=== PATIENT | female | born 1965 | race Caucasian/White ===

== ENCOUNTER → 2023-04-29 11:38 | Outpatient (REF) | payer OTHER, SELFPAY | LOC: HWWDC 11:38 | PROVIDERS: ATTENDING PHYSICIAN Obstetrics & Gynecology; FAMILY PHYSICIAN Family Medicine | DX: Z12.31 Encounter for screening mammogram for malignant neoplasm of breast (principal) | CPT/HCPCS: 77063; 77067 ==

== ENCOUNTER 2023-12-04 17:08 | Emergency (ER) | payer OTHER, SELFPAY ==
[2023-12-04 17:09] VITALS: BP 112/70
--- NOTE | 2023-12-04 17:50 | ED.SKININJ ---
HPI-Injury
<Laisha Bello WATER SERVICE DISPATCHER - Last Filed: 12/04/23 23:13>
General
Chief Complaint: Skin Problem
Source: patient
Exam Limitations: none
Time Seen by Provider: 12/04/23 17:37
Nursing documentation reviewed up to this point in time: agreed with
History of Present Illness-Injury
Initial Injury comments:
58-year-old female with no significant past medical history states she was driving a glass with her right hand in the glass when the glass broke and lacerated the palm of her right hand. She is unsure of her last tetanus immunization.
Past History
<Laisha Bello, WATER SERVICE DISPATCHER - Last Filed: 12/04/23 23:13>
Past History
ED Past Medical History: Other (MS, currently taking no medication, has no symptoms)
ED Past Surgical History: Cholecystectomy and Gynecological (tubal ligation)
Social History
Tobacco: Non-smoker
Alcohol: Occasional
Personal:
Living: with family
Employment: Employed
Review of Systems
<Laisha Bello, WATER SERVICE DISPATCHER - Last Filed: 12/04/23 23:13>
Review of Systems
Allergies reviewed?: Yes
All Other Systems: ROS reviewed and negative except as documented in HPI and ROS
Skin: Reports other (Cut palm of right hand)
Skin Exam
<Laisha Bello, WATER SERVICE DISPATCHER - Last Filed: 12/04/23 23:13>
Laceration
Thenar eminence right hand palm:
Length in cm: 2
Orientation: diagonal
Type of Laceration: simple
Any active bleeding?: low grade venous oozing
Distal skin color and temperature: normal-warm & good color
Normal distal neurovascular exam: Yes
Range of motion: full
Phy Exam
<Laisha Bello, WATER SERVICE DISPATCHER - Last Filed: 12/04/23 23:13>
Physical Exam
Physical Exam:
PHYSICAL EXAMINATION:
General: no apparent distress, not acutely ill
Neuro: alert and oriented.
Psychiatric: well kept. interactive and cooperative
Musculoskeletal: Moves with ease
Skin: Warm, pink.
Course
<Laisha Bello NP - Last Filed: 12/04/23 23:13>
Orders/Labs/Results
Orders:
Orders
12/04/23 17:51
Tetanus/Diphth/Acelpertussis [Adacel] 0.5 ml IM .ONCE ONE
Vital Signs
Initial and Last Documented VS:
Initial Vital Signs
Temp Pulse Resp BP Pulse Ox
98.9 F 104 18 112/70 100
12/04/23 17:09 12/04/23 17:09 12/04/23 17:09 12/04/23 17:09 12/04/23 17:09
Last Documented Vital Signs
Temp Pulse Resp BP Pulse Ox
98.9 F 76 18 104/61 100
12/04/23 17:09 12/04/23 18:14 12/04/23 17:09 12/04/23 18:14 12/04/23 17:09
<Yesi Miguel PA-C - Last Filed: 12/04/23 18:03>
Orders/Labs/Results
Orders:
Orders
12/04/23 17:51
Tetanus/Diphth/Acelpertussis [Adacel] 0.5 ml IM .ONCE ONE
Vital Signs
Initial and Last Documented VS:
Initial Vital Signs
Temp Pulse Resp BP Pulse Ox
98.9 F 104 18 112/70 100
12/04/23 17:09 12/04/23 17:09 12/04/23 17:09 12/04/23 17:09 12/04/23 17:09
Last Documented Vital Signs
Temp Pulse Resp BP Pulse Ox
98.9 F 76 18 104/61 100
12/04/23 17:09 12/04/23 18:14 12/04/23 17:09 12/04/23 18:14 12/04/23 17:09
Procedures
<Yesi Miguel PA-C - Last Filed: 12/04/23 18:03>
Laceration Closure
Right Anterior Hand:
Status of Wound: clean
Size of Wound in cm: 2
Description of Wound Edges: ragged
Preparation: cleaned with saline
Anesthesia: 1% Lidocaine
Revision/Debridement: routine- no revision
Wound exploration: explored to base- no FB
Type of Closure: single layer closure
Skin Closure Material: 4-0 prolene
Number of sutures: 4
Additional information:
patient tolerated procedure well
<Laisha Bello WATER SERVICE DISPATCHER - Last Filed: 12/04/23 23:13>
MDM/Problems Addressed
MDM/Problems Addressed:
58-year-old female with no significant past medical history states she was driving a glass with her right hand in the glass when the glass broke and lacerated the palm of her right hand. She is unsure of her last tetanus immunization.
<Yesi Miguel PA-C - Last Filed: 12/04/23 18:03>
*Critical Care Note
Total Time (30-74mins, 75-104mins- exclusive of procedures): Not Applicable
ED Attending Note
<Laisha Bello WATER SERVICE DISPATCHER - Last Filed: 12/04/23 23:13>
-
Portions of this chart may have been created with voice recognition software.� Occasional wrong word or��sound alike� substitutions may have occurred due to the inherent limitations of voice recognition software.
Discharge Plan
Departure
Patient Disposition: Home (Routine Discharge)
Date of Disposition: 12/04/23
Time of Disposition: 18:07
Patient with high blood pressure during this ER visit?: No
Condition: Good
Discharge Problem:
Laceration of right hand
Instructions: Laceration Repair With Stitches ED
Referrals:
Lazaro Eric DO [Family Provider] - Call in 1-3 days for appt
Activity Restrictions/Additional Instructions:
As we discussed, have the sutures removed in 12 to 14 days. Call your family doctor and make an appoint or go to urgent care for suture removal.
Seek medical care immediately for signs of infection which may include increasing pain, swelling, redness, pus drainage or fever
Interventions
Interventions:
*Risk Screen - Suicide Last Done: 12/04/23 17:09
*General Assessment Last Done: 12/04/23 18:14
*Neglect/Abuse Screening Last Done: 12/04/23 17:09
*Nursing Disposition Last Done: 12/04/23 18:14
ED-Skin Assessment Last Done: 12/04/23 17:25
Discharge Date and Time
Discharge Date/Time: 12/04/23 18:16
Print Language: ICELANDIC
[2023-12-04] MEDS: ADACEL 0.5 ML IM (18:06)
[2023-12-04 18:14] VITALS: BP 104/61
== END 2023-12-04 18:16 | disposition home or self-care (01) ==
LOC: EMR 17:08
PROVIDERS: EMERGENCY PHYSICIAN Emergency Medicine; FAMILY PHYSICIAN Family Medicine
DX: S61.411A Laceration without foreign body of right hand, initial encounter (principal); X58.XXXA Exposure to other specified factors, initial encounter; Z23 Encounter for immunization; Z90.49 Acquired absence of other specified parts of digestive tract; Z98.51 Tubal ligation status
CPT/HCPCS: 99282; 12001; 90471; 90715

== ENCOUNTER → 2024-06-01 06:37 | Outpatient (REF) | payer OTHER, SELFPAY | LOC: MRI 3T 06:37 | PROVIDERS: ATTENDING PHYSICIAN Family Medicine | DX: G35 Multiple sclerosis (principal) | CPT/HCPCS: 70551; 72141 ==

== ENCOUNTER → 2024-06-02 06:40 | Outpatient (REF) | payer OTHER, SELFPAY | LOC: MRI 3T 06:40 | PROVIDERS: ATTENDING PHYSICIAN Family Medicine | DX: G35 Multiple sclerosis (principal) | CPT/HCPCS: 72146 ==

== ENCOUNTER → 2024-07-04 09:03 | Outpatient (REF) | payer OTHER, SELFPAY | LOC: HWWDC 09:03 | PROVIDERS: ATTENDING PHYSICIAN Obstetrics & Gynecology; FAMILY PHYSICIAN Family Medicine | DX: Z12.31 Encounter for screening mammogram for malignant neoplasm of breast (principal) | CPT/HCPCS: 77063; 77067 ==

== ENCOUNTER → 2025-03-07 07:08 | Outpatient (REF) | payer OTHER, SELFPAY | LOC: HWRAD 07:08 | PROVIDERS: ATTENDING PHYSICIAN Family Medicine | DX: R10.9 Unspecified abdominal pain (principal) | CPT/HCPCS: 76700 ==